=== PATIENT | female | born 1975 | race Native Hawaiian/Other Pacific Islander ===

== ENCOUNTER 2021-08-15 10:13 | Outpatient (CLI) | payer OTHER | END 2021-08-15 19:07 | disposition home or self-care (01) | LOC: RAD 10:13 | PROVIDERS: ATTEND Nurse Practitioner Family | DX: R51.9 Headache, unspecified (principal); R05.8 Other specified cough ==

== ENCOUNTER 2022-10-22 15:40 | Outpatient (CLI) | payer OTHER | END 2022-10-22 19:29 | disposition home or self-care (01) | LOC: RAD 15:40 | PROVIDERS: ATTEND Nurse Practitioner Family | DX: M54.59 Other low back pain (principal) ==